=== PATIENT | male | born 1990 | race Caucasian/White ===

== ENCOUNTER 2018-01-15 03:53 | Emergency (ER) | payer BC ==
[2018-01-15] MEDS ORDERED: NA CHLORIDE 0.9% 1,000 ML ONE (04:11)
[2018-01-15] MEDS ORDERED: ONDANSETRON 4 MG/2 ML VIAL ONE (04:11)
[2018-01-15 04:33] LABS: Absolute Lymphocytes (CBC) 2.8 K/uL (0.7-4.9); Absolute Monocytes 0.6 K/uL (0.1-1.3); Absolute Neutrophil 8.8 K/uL (1.8-8.0); Basophils % 0.4 % (0-1.3); Eosinophils % 1.3 % (0-4.4); Hematocrit 41.1 % (39.6-49.0); Lymphocytes % 22.5 % (15.3-44.8); MCH 32.4 pg (27.0-35.0); MCV 90.2 fL (80-100); MPV 8.6 fL (7.6-11.3); Monocytes % 4.9 % (3.3-12.3); RBC Red Blood Cell Count 4.55 M/uL (4.33-5.43)
[2018-01-15 04:39] LABS: Potassium 3.3 mmol/L (3.5-5.1)
[2018-01-15] MEDS ORDERED: KETOROLAC 30 MG/ML INJ ONE (05:21)
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
[2018-01-15 06:37] LABS: Urine Blood NEGATIVE (NEG); Urine Glucose NEGATIVE (NEG); Urine Protein 1+ (NEG)
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
== END 2018-01-15 06:56 | disposition short-term general hospital (02) ==
LOC: ER 03:53
DX: S32.018A Other fracture of first lumbar vertebra, initial encounter for closed fracture (principal); V49.9XXA Car occupant (driver) (passenger) injured in unspecified traffic accident, initial encounter; I10 Essential (primary) hypertension; F17.210 Nicotine dependence, cigarettes, uncomplicated
CPT/HCPCS: 36415; 70450; 71260; 72125; 74177; 80048; 80320; 81003; 85025; 86850; 86900; 86901; 99285; J2405; J7030; Q9967